=== PATIENT | female | born 1955 | race Caucasian/White ===

== ENCOUNTER → 2017-04-03 | Outpatient (CLI) | payer BC ==
--- NOTE | 2017-04-03 13:27 | MM ---
Reason for exam: screening (asymptomatic). Last mammogram was performed 1 year ago. History: Patient is postmenopausal. Family history of breast cancer in 2 aunts, premenopausal breast cancer in sister at age 45, and breast cancer in mother at age 61. Benign stereotactic core biopsy of the right breast, March 11, 2005. Benign stereotactic core biopsy of the right breast, March 11, 2005. Benign excisional biopsy of the right breast. Took estrogen for 3 months. Physical Findings: A clinical breast exam by your physician is recommended on an annual basis and results should be correlated with mammographic findings. MG Screening Mammo w CAD Bilateral CC and MLO view(s) were taken. Prior study comparison: April 02, 2016, bilateral MG screening mammo w CAD. April 05, 2015, right breast MG work up mamm w CAD RT. The breast tissue is heterogeneously dense. This may lower the sensitivity of mammography. Finding: There are typically benign calcifications in both breasts. Previous mammotome biopsy in the right breast. There is a chronic nodularity in the right breast. ASSESSMENT: Benign, BI-RAD 2 RECOMMENDATION: Routine screening mammogram of both breasts in 1 year.
== END | disposition home or self-care (01) ==
LOC: RADMAMWWP 09:20
PROVIDERS: ATTEND Family Medicine
DX: Z12.31 Encounter for screening mammogram for malignant neoplasm of breast (principal)

== ENCOUNTER → 2018-04-27 | Outpatient (CLI) | payer BC ==
--- NOTE | 2018-04-28 07:46 | MM ---
Reason for exam: screening (asymptomatic). Last mammogram was performed 1 year and 1 month ago. History: Patient is postmenopausal. Family history of breast cancer in 2 aunts, premenopausal breast cancer in sister at age 45, and breast cancer in mother at age 61. Benign stereotactic core biopsy of the right breast, March 11, 2005. Benign stereotactic core biopsy of the right breast, March 11, 2005. Benign excisional biopsy of the right breast. Took estrogen for 3 months. Physical Findings: A clinical breast exam by your physician is recommended on an annual basis and results should be correlated with mammographic findings. MG Screening Mammo w CAD Bilateral CC and MLO view(s) were taken. Prior study comparison: April 03, 2017, bilateral MG screening mammo w CAD. April 02, 2016, bilateral MG screening mammo w CAD. March 31, 2015, bilateral MG screening mammo w CAD. There are scattered fibroglandular densities. Previous mammotome biopsy in the right breast x 2. Chronic nodularity in the right breast. No significant changes when compared with prior studies. ASSESSMENT: Benign, BI-RAD 2 RECOMMENDATION: Routine screening mammogram of both breasts in 1 year.
== END | disposition home or self-care (01) ==
LOC: RADMAMWWP 07:11
PROVIDERS: ATTEND Family Medicine
DX: Z12.31 Encounter for screening mammogram for malignant neoplasm of breast (principal)
CPT/HCPCS: 77067

== ENCOUNTER → 2019-06-15 | Outpatient (CLI) | payer BC ==
--- NOTE | 2019-06-17 10:00 | MM ---
Reason for exam: screening (asymptomatic). Last mammogram was performed 1 year and 2 months ago. History: Patient is postmenopausal. Family history of breast cancer in 2 aunts, premenopausal breast cancer in sister at age 45, and breast cancer in mother at age 61. Benign stereotactic core biopsy of the right breast, March 11, 2005. Benign stereotactic core biopsy of the right breast, March 11, 2005. Benign excisional biopsy of the right breast. Took estrogen for 3 months. Physical Findings: A clinical breast exam by your physician is recommended on an annual basis and results should be correlated with mammographic findings. MG Screening Mammo w CAD Bilateral CC and MLO view(s) were taken. Prior study comparison: April 27, 2018, bilateral MG screening mammo w CAD. April 03, 2017, bilateral MG screening mammo w CAD. There are scattered fibroglandular densities. Previous mammotome biopsy in the right breast x 2. There is chronic nodularity in the right breast. No significant changes when compared with prior studies. ASSESSMENT: Benign, BI-RAD 2 RECOMMENDATION: Routine screening mammogram of both breasts in 1 year.
== END | disposition home or self-care (01) ==
LOC: RADMAMWWP 07:49
PROVIDERS: ATTEND General Practice
DX: Z12.31 Encounter for screening mammogram for malignant neoplasm of breast (principal)
CPT/HCPCS: 77067

== ENCOUNTER → 2021-01-29 | Outpatient (CLI) | payer MEDICARE ==
--- NOTE | 2021-01-30 12:26 | MM ---
Reason for exam: screening (asymptomatic). Last mammogram was performed 1 year and 8 months ago. History: Patient is postmenopausal. Family history of breast cancer in 2 aunts, premenopausal breast cancer in sister at age 45, and breast cancer in mother at age 61. Benign stereotactic core biopsy of the right breast, March 11, 2005. Benign stereotactic core biopsy of the right breast, March 11, 2005. Benign excisional biopsy of the right breast. Took estrogen for 3 months. Physical Findings: A clinical breast exam by your physician is recommended on an annual basis and results should be correlated with mammographic findings. MG 3D Screening Mammo W/Cad Bilateral CC and MLO view(s) were taken. Prior study comparison: June 15, 2019, bilateral MG screening mammo w CAD. April 27, 2018, bilateral MG screening mammo w CAD. The breast tissue is heterogeneously dense. This may lower the sensitivity of mammography. No significant changes when compared with prior studies. ASSESSMENT: Benign, BI-RAD 2 RECOMMENDATION: Routine screening mammogram of both breasts in 1 year.
== END | disposition home or self-care (01) ==
LOC: RADMAMWWP 10:08
PROVIDERS: ATTEND General Practice
DX: Z12.31 Encounter for screening mammogram for malignant neoplasm of breast (principal)
CPT/HCPCS: 77063; 77067

== ENCOUNTER → 2023-01-28 | Outpatient (CLI) | payer MEDICARE ==
--- NOTE | 2023-01-29 08:29 | MM ---
Reason for Exam: Screening (asymptomatic). Last mammogram was performed 2 year(s) and 0 month(s) ago. Patient History: Menarche at age 12. First Full-Term at age 17. Postmenopausal. Benign Excisional Biopsy on the right side. 03/11/2005, Benign Stereotactic Core Biopsy on the right side. 03/11/2005, Benign Stereotactic Core Biopsy on the right side. Maternal aunt had breast cancer. Maternal aunt had breast cancer. Sister had breast cancer, age 45. Mother had breast cancer, age 61. Risk Values: Milana 5 year model risk: 11.9%. NCI Lifetime model risk: 33.4%. Prior Study Comparison: 04/27/2018 Bilateral Screening Mammogram, [facility]. 06/15/2019 Bilateral Screening Mammogram, [facility]. 01/29/2021 Bilateral Screening Mammogram, [facility]. Tissue Density: The breast tissue is heterogeneously dense. This may lower the sensitivity of mammography. Findings: Analyzed By CAD. Degenerating fibroadenoma changes are unchanged from prior. Benign-appearing calcifications are present. Right breast biopsy clips. There is no suspicious group of microcalcifications or new suspicious mass in either breast. Overall Assessment: Benign, BI-RAD 2 Management: Screening Mammogram of both breasts in 1 year. A clinical breast exam by your physician is recommended on an annual basis and results should be correlated with mammographic findings. [facility] will attempt to contact patient to return for supplemental views and ultrasound if indicated. Electronically signed and approved by: Kael Leal DO
== END | disposition home or self-care (01) ==
LOC: RADMAMWWP 09:54
PROVIDERS: ATTEND Family Medicine
DX: Z12.31 Encounter for screening mammogram for malignant neoplasm of breast (principal); Z78.0 Asymptomatic menopausal state; Z80.3 Family history of malignant neoplasm of breast
CPT/HCPCS: 77063; 77067

== ENCOUNTER → 2024-01-30 | Outpatient (CLI) | payer MEDICARE ==
--- NOTE | 2024-02-03 13:47 | MM ---
Reason for Exam: Screening (asymptomatic). Last screening mammogram was performed 12 month(s) ago. Patient History: Menarche at age 12. First Full-Term at age 17. Postmenopausal. Benign Excisional Biopsy on the right side. 03/11/2005, Benign Stereotactic Core Biopsy on the right side. 03/11/2005, Benign Stereotactic Core Biopsy on the right side. Maternal aunt had breast cancer. Maternal aunt had breast cancer. Sister had breast cancer, age 45. Mother had breast cancer, age 61. Risk Values: Milana 5 year model risk: 12.0%. NCI Lifetime model risk: 32.2%. Prior Study Comparison: 04/03/2017 Bilateral Screening Mammogram, [facility]. 04/27/2018 Bilateral Screening Mammogram, [facility]. 06/15/2019 Bilateral Screening Mammogram, [facility]. 01/29/2021 Bilateral Screening Mammogram, [facility]. 01/28/2023 Bilateral MG 3D screening mammo w/cad, [facility]. Tissue Density: The breasts are heterogeneously dense, which may obscure small masses. Findings: Analyzed By CAD. Right breast: There is no suspicious group of microcalcifications or new suspicious mass. Stable partially calcified lesions in the right breast posterior aspect. Left breast: There is no suspicious group of microcalcifications or new suspicious mass. Overall Assessment: Benign, BI-RAD 2 Management: Screening Mammogram of both breasts in [address] [facility] will attempt to contact patient to return for supplemental views and ultrasound if indicated. Patient should continue monthly self-breast exams. A clinical breast exam by your physician is recommended on an annual basis. This exam should not preclude additional follow-up of suspicious palpable abnormalities. Note on Milana scores and lifetime risk: 1. A Milana score greater than 3% is considered moderate risk. If this is the case, consider specialist referral to assess eligibility for a risk reducing agent. 2. If overall lifetime risk for the development of breast cancer is 20% or higher, the patient may qualify for future screening with alternating mammogram and breast MRI. Electronically signed and approved by: Kael Leal DO
== END | disposition home or self-care (01) ==
LOC: RADMAMWWP 08:35
PROVIDERS: ATTEND Family Medicine
DX: Z12.31 Encounter for screening mammogram for malignant neoplasm of breast (principal); Z80.3 Family history of malignant neoplasm of breast; Z78.0 Asymptomatic menopausal state
CPT/HCPCS: 77063; 77067